=== PATIENT | female | born 1975 | race Caucasian/White ===

== ENCOUNTER 2016-05-31 08:05 | Emergency (ER) | payer OTHER ==
[~2016-05-31 08:05] MED LIST: BACTRIM DS TAB1 EAC2 PO; CYCLOBENZAPRINE10 M1 PO; CYCLOBENZAPRINE5 M1 PO; IBUPROFEN600 M1 PO; LEVAQUIN750 M1 PO; NORCO 5-325 TA1 EACH PO; OMEPRAZOLE40 M2 PO; PEPCID20 MG PO; PERCOCET 5-3251 EACH PO; PREDNISONE50 M1 PO; PROAIR HFA8.5 GM IH; PROZAC40 M1 PO; XANAX1 M1 PO; ZITHROMAX250 M1 PO
== END 2016-05-31 09:30 ==
LOC: EDMED 08:05
DX: G43.909 Migraine, unspecified, not intractable, without status migrainosus (principal); F32.9 Major depressive disorder, single episode, unspecified; K21.9 Gastro-esophageal reflux disease without esophagitis; F17.200 Nicotine dependence, unspecified, uncomplicated
CPT/HCPCS: J1200; J1885; J2765; J7030